=== PATIENT | female | born 1935 | race Two or more races ===

== ENCOUNTER 2024-01-18 02:11 | Inpatient (IN) | payer MEDICARE, OTHER ==
[~2024-01-18] VITALS: Ht 152.4 cm; Wt 87.5 kg
[2024-01-18] MEDS ORDERED: ONDANSETRON HCL/PF 4 MG/2 ML VIAL ONE ×2 (02:24→02:36)
[2024-01-18] MEDS: ONDANSETRON HCL/PF 4 MG/2 ML VIAL IVP ONE ×2 (02:30→02:45)
[2024-01-18] MEDS: IV NS 0.9% 1,000 ML BAG IV ONE (02:45)
[2024-01-18 02:52] LABS: BASOPHILS % (AUTO) 0.2 % (0.0-2.0); EOSINOPHILS % (AUTO) 0.1 % (0.0-6.0); HEMATOCRIT 28 % (33-45); HEMOGLOBIN 8.9 g/dL (11.5-14.8); LYMPHOCYTES # (AUTO) 0.6 K/uL (0.8-4.8); LYMPHOCYTES % (AUTO) 5.1 % (20.0-44.0); MEAN CORPUSCULAR HEMOGLOBIN 25 PG (26.0-33.0); MEAN CORPUSCULAR HGB CONC 32 g/dl (31.0-36.0); MEAN CORPUSCULAR VOLUME 78 fL (82-100); MONOCYTES # (AUTO) 0.5 K/uL (0.1-1.30); NEUTROPHILS # (AUTO) 11.5 K/uL (1.8-8.9); NEUTROPHILS % (AUTO) 90.6 % (43.0-81.0); PLATELET COUNT (AUTO) 317 K/uL (150-450); RED BLOOD CELL COUNT(AUTO) 3.53 MIL/uL (4.0-5.2); RED CELL DISTRIBUTION WIDTH 17.6 % (11.5-15.0); WHITE BLOOD COUNT (AUTO) 12.7 K/uL (4.3-11.0)
[2024-01-18] MEDS ORDERED: MAG HYDROX/AL HYDROX/SIMETH 30 ML UDC PO PRN (03:00)
[2024-01-18] MEDS ORDERED: ONDANSETRON HCL/PF 4 MG/2 ML VIAL IVP PRN (03:00)
[2024-01-18] MEDS ORDERED: MAGNESIUM HYDROXIDE 30 ML UDC PO PRN (03:00)
[2024-01-18 03:05] LABS: INR 1.12 (0.91-1.10); PARTIAL THROMBOPLASTIN TIME 27.5 SEC (24.3-34.3); PROTHROMBIN TIME 11.8 SECS (9.2-11.1)
[2024-01-18 03:08] LABS: SERUM AMMONIA 9 umol/L (11-32)
[2024-01-18 03:11] LABS: ALCOHOL, BLOOD 3 mg/dL (0-10)
[2024-01-18 03:12] LABS: ALANINE AMINOTRANSFERASE 22 U/L (12-78); ALBUMIN 2.5 g/dL (3.4-5.0); ALKALINE PHOSPHATASE 102 U/L (46-116); ASPARTATE AMINOTRANSFERASE 23 U/L (15-37); BILIRUBIN,DIRECT 0.2 mg/dL (0.0-0.2); BILIRUBIN,TOTAL 0.5 mg/dL (0.2-1.0); CALCIUM, SERUM 9.1 mg/dL (8.5-10.1); CARBON DIOXIDE 24 mmol/L (21-32); CHLORIDE 105 mmol/L (98-107); CREATININE 0.9 mg/dL (0.6-1.3); GLUCOSE 198 mg/dL (74-106); LIPASE 17 U/L (16-77); POTASSIUM 3.7 mmol/L (3.5-5.1); SODIUM SERUM 140 mmol/L (136-145); TOTAL PROTEIN, SERUM 7.4 g/dL (6.4-8.2); UREA NITROGEN, BLOOD 10 mg/dL (7-18)
[2024-01-18 03:14] LABS: ACETAMINOPHEN <10 ug/ml (10-30); SALICYLATE 0.9 mg/dL (2.8-20.0)
[2024-01-18 03:15] LABS: LACTIC ACID 2.3 mmol/L (0.4-2.0)
[2024-01-18] MEDS: CEFTRIAXONE 1GM BAG (ER ONLY) 1 GM/50 ML PIGGYBACK IV ONE (03:30)
[2024-01-18] MEDS ORDERED: CEFTRIAXONE 1GM BAG (ER ONLY) 50 ML IV ONE (03:30)
[2024-01-18] MEDS: IV NS 0.9% 500 ML BAG IV ONE (03:30)
[2024-01-18] MEDS ORDERED: METRONIDAZOLE 500MG/ NS 100ML 100 ML IV ONE (03:50)
[2024-01-18] MEDS ORDERED: ENOXAPARIN SODIUM 100 MG/ML DISP.SYRIN SQ ONE (03:57)
[2024-01-18] MEDS ORDERED: FERR-56 PO (03:58)
[2024-01-18] MEDS ORDERED: LOSA100T31 PO (03:58)
[2024-01-18] MEDS ORDERED: CARV6.252 PO (03:58)
[2024-01-18] MEDS ORDERED: MELO-105 PO (03:58)
[2024-01-18] MEDS ORDERED: APIX5TAB4 PO (03:58)
[2024-01-18] MEDS: FLAGYL/NS RTU 500 MG/100 ML PIGGYBACK IV ONE (04:00)
[2024-01-18] MEDS: ENOXAPARIN SODIUM 80 MG/0.8 ML DISP.SYRIN SQ ONE (04:10)
[2024-01-18] MEDS ORDERED: VANCOMYCIN 1 GM /D5W 250 ML PB IV ONE (05:10)
[2024-01-18] MEDS: VANCOMYCIN 1 GM in IV D5W 250 ML IV ONE (05:56)
[2024-01-18] MEDS: VANCOMYCIN 500 MG in IV D5W 100ml IV ONE (08:14)
[2024-01-18] MEDS: FERROUS SULFATE (325 MG) 325 MG/TAB TABLET PO SCH (09:00)
[2024-01-18] MEDS: CARVEDILOL 6.25 MG TABLET PO SCH (09:00)
[2024-01-18] MEDS: LOSARTAN POTASSIUM 50 MG TABLET PO SCH (09:00)
[2024-01-18] MEDS: PANTOPRAZOLE 40 MG VIAL IV SCH (09:00)
[2024-01-18 10:38] VITALS: O2SAT 92
[2024-01-18 12:00] VITALS: BP 136/65; TEMP 97.6; O2SAT 94
[2024-01-18] MEDS: METRONIDAZOLE 500MG/ NS 100ML 500 MG in PREMIX 1 EA IV SCH (12:24)
[2024-01-18 16:00] VITALS: BP 137/63; TEMP 98.8; O2SAT 99
[2024-01-18 20:00] VITALS: BP 126/99; TEMP 100.4; O2SAT 98
[2024-01-18] MEDS: ACETAMINOPHEN 325 MG TABLET PO PRN (20:21)
[2024-01-18 20:57] LABS: OCCULT BLOOD STOOL NEGATIVE (NEGATIVE)
[2024-01-18] MEDS: ENOXAPARIN SODIUM 100 MG/ML DISP.SYRIN SQ SCH (21:06)
[2024-01-19] VITALS (7 sets, daily range): BP systolic 131–157; BP diastolic 50–86; TEMP 97.7–100.9; O2SAT 95–99
[2024-01-19] MEDS: CEFTRIAXONE 1 G in IV D5W 50 ML IV SCH (02:47)
[2024-01-19] MEDS: VANCOMYCIN HCL 1.25 GM in IV D5W 250 ML IV SCH (07:50)
[2024-01-19 07:51] LABS: BASOPHILS % (AUTO) 0.2 % (0.0-2.0); EOSINOPHILS % (AUTO) 0.3 % (0.0-6.0); HEMATOCRIT 24 % (33-45); HEMOGLOBIN 7.8 g/dL (11.5-14.8); LYMPHOCYTES # (AUTO) 1.2 K/uL (0.8-4.8); LYMPHOCYTES % (AUTO) 9.3 % (20.0-44.0); MEAN CORPUSCULAR HEMOGLOBIN 25 PG (26.0-33.0); MEAN CORPUSCULAR HGB CONC 32 g/dl (31.0-36.0); MEAN CORPUSCULAR VOLUME 78 fL (82-100); MONOCYTES # (AUTO) 0.7 K/uL (0.1-1.30); MONOCYTES % (AUTO) 4.9 % (2.0-12.0); NEUTROPHILS # (AUTO) 11.5 K/uL (1.8-8.9); NEUTROPHILS % (AUTO) 85.3 % (43.0-81.0); PLATELET COUNT (AUTO) 248 K/uL (150-450); RED BLOOD CELL COUNT(AUTO) 3.11 MIL/uL (4.0-5.2); RED CELL DISTRIBUTION WIDTH 17.8 % (11.5-15.0); WHITE BLOOD COUNT (AUTO) 13.4 K/uL (4.3-11.0)
[2024-01-19 08:02] LABS: CREATININE 0.7 mg/dL (0.6-1.3); MAGNESIUM 1.6 mg/dL (1.8-2.4); PHOSPHORUS 2.8 mg/dL (2.5-4.9); POTASSIUM 3.7 mmol/L (3.5-5.1)
[2024-01-19] MEDS: KETOCONAZOLE 2% CREAM 15 GM TUBE TP SCH (08:29)
[2024-01-19] MEDS ORDERED: MAGNESIUM OXIDE 400 MG TABLET PO ONE (10:30)
[2024-01-19] MEDS: FUROSEMIDE 40 MG/4 ML VIAL IV SCH (10:44)
[2024-01-19] MEDS: Magnesium 1GM/D5W 100ML PREMIX 100 ML IV SCH (10:45)
[2024-01-19 10:50] LABS: THYROID STIMULATING HORMONE 1.51 uIU/mL (0.358-3.74)
[2024-01-19] MEDS: METRONIDAZOLE 500 MG TABLET PO SCH (12:07)
[2024-01-20] VITALS: BP 136/82; TEMP 98.5; O2SAT 98
[2024-01-20 04:00] VITALS: BP 135/79; TEMP 98; O2SAT 99
[2024-01-20 07:49] LABS: BASOPHILS % (AUTO) 0.3 % (0.0-2.0); EOSINOPHILS # (AUTO) 0.2 K/uL (0.0-0.7); EOSINOPHILS % (AUTO) 1.9 % (0.0-6.0); HEMATOCRIT 26 % (33-45); HEMOGLOBIN 8.4 g/dL (11.5-14.8); LYMPHOCYTES # (AUTO) 1.3 K/uL (0.8-4.8); LYMPHOCYTES % (AUTO) 12.6 % (20.0-44.0); MEAN CORPUSCULAR HEMOGLOBIN 25 PG (26.0-33.0); MEAN CORPUSCULAR HGB CONC 33 g/dl (31.0-36.0); MEAN CORPUSCULAR VOLUME 78 fL (82-100); MONOCYTES # (AUTO) 0.7 K/uL (0.1-1.30); MONOCYTES % (AUTO) 6.9 % (2.0-12.0); NEUTROPHILS # (AUTO) 8.1 K/uL (1.8-8.9); NEUTROPHILS % (AUTO) 78.3 % (43.0-81.0); PLATELET COUNT (AUTO) 268 K/uL (150-450); RED BLOOD CELL COUNT(AUTO) 3.32 MIL/uL (4.0-5.2); RED CELL DISTRIBUTION WIDTH 17.4 % (11.5-15.0); WHITE BLOOD COUNT (AUTO) 10.3 K/uL (4.3-11.0)
[2024-01-20 08:00] VITALS: BP 148/64; TEMP 97.7; O2SAT 93
[2024-01-20 08:05] LABS: ALBUMIN 1.9 g/dL (3.4-5.0); BILIRUBIN,TOTAL 0.3 mg/dL (0.2-1.0); CALCIUM, SERUM 8.6 mg/dL (8.5-10.1); CREATININE 0.7 mg/dL (0.6-1.3); MAGNESIUM 2.1 mg/dL (1.8-2.4); PHOSPHORUS 3.3 mg/dL (2.5-4.9); POTASSIUM 3.4 mmol/L (3.5-5.1); TOTAL PROTEIN, SERUM 6.5 g/dL (6.4-8.2)
[2024-01-20] MEDS: Z GUARD REMEDY 4 OZ OINT TP PRN (09:12)
[2024-01-20] MEDS ORDERED: POTASSIUM CHLORIDE 20 MEQ POWDER PACKET PO ONE (09:30)
[2024-01-20] MEDS: FUROSEMIDE 40 MG/4 ML VIAL IV SCH (10:24)
[2024-01-20] MEDS: CARVEDILOL 12.5 MG TABLET PO SCH (10:25)
[2024-01-20] MEDS: POTASSIUM CHLORIDE 20 MEQ TAB.PRT.SR PO SCH ×2 (10:25→13:51)
[2024-01-20 12:00] VITALS: BP 108/65; TEMP 97.9; O2SAT 100
[2024-01-20] MEDS: SOD FERRIC GLUC 125 MG in IV NS 0.9% 100 ML IV SCH (13:55)
[2024-01-20 16:00] VITALS: BP 121/47; TEMP 97.9; O2SAT 92
[2024-01-20 20:00] VITALS: BP 144/57; TEMP 99; O2SAT 95
[2024-01-21] VITALS: BP 135/54; TEMP 98.9; O2SAT 95
[2024-01-21 04:00] VITALS: BP 150/57; TEMP 98.4; O2SAT 94
[2024-01-21 07:11] LABS: BASOPHILS % (AUTO) 0.4 % (0.0-2.0); EOSINOPHILS # (AUTO) 0.4 K/uL (0.0-0.7); EOSINOPHILS % (AUTO) 4.7 % (0.0-6.0); HEMATOCRIT 28 % (33-45); HEMOGLOBIN 9.1 g/dL (11.5-14.8); LYMPHOCYTES # (AUTO) 1.3 K/uL (0.8-4.8); LYMPHOCYTES % (AUTO) 17.7 % (20.0-44.0); MEAN CORPUSCULAR HEMOGLOBIN 25 PG (26.0-33.0); MEAN CORPUSCULAR HGB CONC 33 g/dl (31.0-36.0); MEAN CORPUSCULAR VOLUME 78 fL (82-100); MONOCYTES # (AUTO) 0.7 K/uL (0.1-1.30); MONOCYTES % (AUTO) 9.7 % (2.0-12.0); NEUTROPHILS # (AUTO) 5.1 K/uL (1.8-8.9); NEUTROPHILS % (AUTO) 67.5 % (43.0-81.0); PLATELET COUNT (AUTO) 293 K/uL (150-450); RED CELL DISTRIBUTION WIDTH 17.6 % (11.5-15.0); WHITE BLOOD COUNT (AUTO) 7.6 K/uL (4.3-11.0)
[2024-01-21 07:38] LABS: ALANINE AMINOTRANSFERASE 19 U/L (12-78); ALBUMIN 1.9 g/dL (3.4-5.0); ALKALINE PHOSPHATASE 75 U/L (46-116); ASPARTATE AMINOTRANSFERASE 13 U/L (15-37); BILIRUBIN,TOTAL 0.3 mg/dL (0.2-1.0); CALCIUM, SERUM 8.5 mg/dL (8.5-10.1); CARBON DIOXIDE 33 mmol/L (21-32); CHLORIDE 98 mmol/L (98-107); CREATININE 0.8 mg/dL (0.6-1.3); GLUCOSE 107 mg/dL (74-106); PHOSPHORUS 3.4 mg/dL (2.5-4.9); POTASSIUM 3.2 mmol/L (3.5-5.1); SODIUM SERUM 138 mmol/L (136-145); TOTAL PROTEIN, SERUM 6.6 g/dL (6.4-8.2); UREA NITROGEN, BLOOD 12 mg/dL (7-18)
[2024-01-21 08:00] VITALS: BP 142/93; TEMP 99; O2SAT 94
[2024-01-21] MEDS: ENOXAPARIN SODIUM 40 MG/0.4 ML DISP.SYRIN SQ SCH (09:00)
[2024-01-21] MEDS: POTASSIUM CHLORIDE 20 MEQ TAB.PRT.SR PO SCH (09:21)
[2024-01-21] MEDS: ENSURE ENLIVE 237 ML LIQUID (VANILLA) PO SCH (09:22)
[2024-01-21] MEDS: VALSARTAN 80 MG TABLET PO SCH (09:30)
[2024-01-21 09:45] LABS: IRON, SERUM 43 ug/dl (50-175); TOTAL IRON BINDING CAPACITY 194 ug/dl (250-450)
[2024-01-21 09:54] LABS: FERRITIN 343 ng/mL (8-388)
[2024-01-21 12:00] VITALS: BP 142/93; TEMP 99; O2SAT 95
[2024-01-21 16:00] VITALS: BP 148/66; TEMP 98.8; O2SAT 99
[2024-01-21 20:00] VITALS: BP 139/69; TEMP 99.1; O2SAT 99
[2024-01-22] VITALS (7 sets, daily range): BP systolic 135–168; BP diastolic 53–78; TEMP 97.1–99.9; O2SAT 95–99
[2024-01-22 06:45] LABS: APPEARANCE,URINE TURBID (CLEAR); BILIRUBIN,URINE 1+ (NEGATIVE); BLOOD, URINE 3+ Ery/uL (NEGATIVE); COLOR,URINE DARK YELLOW (YELLOW); KETONES,URINE NEGATIVE (NEGATIVE); LEUKOCYTE ESTERASE ,URINE NEGATIVE (NEGATIVE); NITRITE, URINE NEGATIVE (NEGATIVE); PROTEIN,URINE 2+ mg/dl (NEGATIVE); UGLUCOSE NEGATIVE (NEGATIVE); UROBILINOGEN,URINE 0.2 EU/dL (0.2)
[2024-01-22 06:49] LABS: BASOPHILS % (AUTO) 0.3 % (0.0-2.0); EOSINOPHILS # (AUTO) 0.3 K/uL (0.0-0.7); EOSINOPHILS % (AUTO) 3.6 % (0.0-6.0); HEMATOCRIT 28 % (33-45); HEMOGLOBIN 9.1 g/dL (11.5-14.8); LYMPHOCYTES # (AUTO) 1.4 K/uL (0.8-4.8); LYMPHOCYTES % (AUTO) 14.7 % (20.0-44.0); MEAN CORPUSCULAR HEMOGLOBIN 26 PG (26.0-33.0); MEAN CORPUSCULAR HGB CONC 33 g/dl (31.0-36.0); MEAN CORPUSCULAR VOLUME 78 fL (82-100); MONOCYTES # (AUTO) 1.1 K/uL (0.1-1.30); MONOCYTES % (AUTO) 11.6 % (2.0-12.0); NEUTROPHILS # (AUTO) 6.6 K/uL (1.8-8.9); NEUTROPHILS % (AUTO) 69.8 % (43.0-81.0); PLATELET COUNT (AUTO) 328 K/uL (150-450); RED BLOOD CELL COUNT(AUTO) 3.57 MIL/uL (4.0-5.2); RED CELL DISTRIBUTION WIDTH 17.2 % (11.5-15.0); WHITE BLOOD COUNT (AUTO) 9.5 K/uL (4.3-11.0)
[2024-01-22 06:58] LABS: CALCIUM, SERUM 8.8 mg/dL (8.5-10.1); CARBON DIOXIDE 31 mmol/L (21-32); CHLORIDE 99 mmol/L (98-107); CREATININE 0.8 mg/dL (0.6-1.3); GLUCOSE 115 mg/dL (74-106); MAGNESIUM 2.1 mg/dL (1.8-2.4); PHOSPHORUS 3.3 mg/dL (2.5-4.9); POTASSIUM 3.6 mmol/L (3.5-5.1); SODIUM SERUM 138 mmol/L (136-145); UREA NITROGEN, BLOOD 14 mg/dL (7-18)
[2024-01-22 07:18] LABS: ADD URINE CULTURE YES; BACTERIA,URINE Rare /HPF (None Seen); RBC,URINE 21-50 /HPF (0-2); SQUAMOUS EPITHELIAL CELL,UR Few /HPF (None Seen)
[2024-01-22] MEDS: MUPIROCIN OINT 2% 22 GM TUBE TP SCH (21:51)
[2024-01-23] VITALS (8 sets, daily range): BP systolic 109–146; BP diastolic 51–95; TEMP 98–99.7; O2SAT 90–99
[2024-01-23 07:28] LABS: CALCIUM, SERUM 8.6 mg/dL (8.5-10.1); CREATININE 0.8 mg/dL (0.6-1.3); POTASSIUM 3.8 mmol/L (3.5-5.1)
[2024-01-23 15:10] LABS: *SPE A/G RATIO 0.6 (0.7-1.7); *SPE ALBUMIN 2.2 g/dL (2.9-4.4); *SPE ALPHA-1-GLOBULIN 0.4 g/dL (0.0-0.4); *SPE BETA GLOBULIN 0.9 g/dL (0.7-1.3); *SPE GLOBULIN, TOTAL 3.7 g/dL (2.2-3.9); *SPE M-SPIKE Not Observed g/dL (Not Observed); *SPE PROTEIN TOTAL 5.9 g/dL (6.0-8.5); *SPEGAMMA GLOBULIN 1.4 g/dL (0.4-1.8)
[2024-01-23] MEDS ORDERED: MEROPENEM 500 MG VIAL IV ONE (22:09)
[2024-01-23] MEDS: MEROPENEM 500 MG in IV NS 0.9% 50 ML IV SCH (22:14)
[2024-01-24] VITALS (9 sets, daily range): BP systolic 126–149; BP diastolic 47–52; TEMP 97.2–98.8; O2SAT 94–100
[2024-01-24 06:31] LABS: CALCIUM, SERUM 8.4 mg/dL (8.5-10.1); CREATININE 0.8 mg/dL (0.6-1.3); POTASSIUM 3.9 mmol/L (3.5-5.1)
[2024-01-24] MEDS: MEROPENEM 1 G in IV NS 0.9% 100 ML IV SCH (10:55)
[2024-01-25 04:00] VITALS: BP 148/58; TEMP 98.4; O2SAT 98
[2024-01-25 04:15] VITALS: O2SAT 99
[2024-01-25 07:15] LABS: CALCIUM, SERUM 8.5 mg/dL (8.5-10.1); CREATININE 0.8 mg/dL (0.6-1.3); POTASSIUM 4.2 mmol/L (3.5-5.1)
[2024-01-25 08:00] VITALS: BP 141/48; TEMP 98.7; O2SAT 99
[2024-01-25 09:02] VITALS: O2SAT 99
[2024-01-25] MEDS: VANCOMYCIN 1 GM in IV D5W 250ml IV SCH (09:22)
[2024-01-25] MEDS: DOXYCYCLINE HYCLATE (100 MG) 100 MG TABLET PO SCH (09:26)
[2024-01-25] MEDS ORDERED: DOXY100T2 PO (10:03)
[2024-01-25] MEDS ORDERED: ACID1TAB12 PO (10:03)
[2024-01-25] MEDS: CEFTRIAXONE 1 G in IV D5W 50 ML IV SCH (10:39)
[2024-01-25] MEDS: HYDROCODONE/APAP 5/325MG TABLET PO PRN (13:13)
[2024-01-25] MEDS: hydrALAZINE HCL 25 MG TABLET PO SCH (13:19)
[2024-01-25 13:30] VITALS: BP 176/76; TEMP 97.8; O2SAT 94
[2024-01-25 13:45] VITALS: BP 135/89; TEMP 97.8; O2SAT 94
== END 2024-01-25 17:15 | disposition home health service (06) | DRG 871 ==
LOC: ER 02:17 → TELE1 04:47 → MEDSG1 01-24 09:59
PROVIDERS: ADMIT Nurse Practitioner Acute Care; ATTEND Nurse Practitioner Acute Care
DX: A41.9 Sepsis, unspecified organism (principal); I21.4 Non-ST elevation (NSTEMI) myocardial infarction; J69.0 Pneumonitis due to inhalation of food and vomit; J96.21 Acute and chronic respiratory failure with hypoxia; I50.23 Acute on chronic systolic (congestive) heart failure; I21.A1 Myocardial infarction type 2; D68.59 Other primary thrombophilia; L03.115 Cellulitis of right lower limb; L03.116 Cellulitis of left lower limb; M87.852 Other osteonecrosis, left femur; I11.0 Hypertensive heart disease with heart failure; Z79.01 Long term (current) use of anticoagulants; Z79.899 Other long term (current) drug therapy; I89.0 Lymphedema, not elsewhere classified; E66.01 Morbid (severe) obesity due to excess calories; E83.19 Other disorders of iron metabolism; B35.3 Tinea pedis; B95.61 Methicillin susceptible Staphylococcus aureus infection as the cause of diseases classified elsewhere; E83.42 Hypomagnesemia; G47.33 Obstructive sleep apnea (adult) (pediatric); G89.29 Other chronic pain; I87.8 Other specified disorders of veins; Z99.81 Dependence on supplemental oxygen; M16.12 Unilateral primary osteoarthritis, left hip; M17.12 Unilateral primary osteoarthritis, left knee; Z74.09 Other reduced mobility; M81.8 Other osteoporosis without current pathological fracture; Z68.37 Body mass index [BMI] 37.0-37.9, adult; Z74.01 Bed confinement status
CPT/HCPCS: 36415; 71045-TC; 73502; 73564-TC; 73700-TC; 80048-TC; 80053-TC; 80061-TC; 80076-TC; 80202-TC; 81001; 82140-TC; 82272-TC; 82728-TC; 83540-TC; 83605-TC; 83690-TC; 83735-TC; 84100-TC; 84155; 84165; 84439-TC; 84443-TC; 84484-TC; 85025-TC; 85652-TC; 85730-TC; 87040-TC; 87086-TC; 92526; 92611-TC; 93307-TC; 94762-TC; 94799-TC; 97110-TC; 97530-TC; A4216; A4223; C9113; G0378; G0480; J0696; J1650; J1940; J2185; J2405; J2916; J3370; J3475; J7030; J7040; J7050; J7060